=== PATIENT | female | born 1970 | race Caucasian/White ===

== ENCOUNTER 2016-12-11 07:11 | Day surgery (SDC) | payer OTHER ==
[2016-12-11] VITALS (16 sets, daily range): BP systolic 92–149; BP diastolic 44–79; PULSE 64–82; RESP 14–20; Ht 157.5 cm; Wt 65.7 kg
[~2016-12-11] VITALS: Ht 157.5 cm; Wt 65.7 kg
[~2016-12-11 07:11] MED LIST: CEFAZOLIN 1 GM INJ ONE; CEFAZOLIN 2 GM/50 ML (PMX) 50 ML IVPB SCH; SEVOFLURANE 15 MIN ONE; SOD CHLORIDE 0.9% 1,000 ML IV SCH
[2016-12-11] MEDS ORDERED: PROPOFOL 60 ML ONE (09:28)
[2016-12-11] MEDS ORDERED: LIDOCAINE 2% (SDV) 5 ML INJ ONE (09:29)
[2016-12-11] MEDS ORDERED: MIDAZOLAM 1 MG/ML 2 ML INJ ONE (09:30)
[2016-12-11] MEDS ORDERED: FENTAnyl 50 MCG/ML VIAL ONE (09:30)
[2016-12-11] MEDS ORDERED: ONDANSETRON 4 MG INJ IV PRN (10:00)
[2016-12-11] MEDS ORDERED: hydrALAzine 20 MG INJ IV PRN (10:00)
[2016-12-11] MEDS ORDERED: HYDROmorphONE (0.2 MG/ML) 10ML SYG IV PRN ×3 (10:00)
[2016-12-11] MEDS ORDERED: EPHEDrine SULFATE 50 MG/5 ML SYG IV PRN (10:00)
[2016-12-11] MEDS ORDERED: MEPERIDINE 25 MG INJ IV PRN (10:00)
[2016-12-11] MEDS ORDERED: FENTAnyl 50 MCG/ML VIAL IV PRN ×3 (10:00)
[2016-12-11] MEDS ORDERED: LABETALOL HCL 20MG INJ IV PRN (10:00)
[2016-12-11] MEDS ORDERED: DIPHENHYDRAMINE 50 MG INJ IV PRN (10:00)
[2016-12-11] MEDS ORDERED: DEXAMETHASONE 4 MG/ML 1 ML INJ ONE (10:14)
[2016-12-11] MEDS ORDERED: ONDANSETRON 4 MG INJ ONE (10:15)
[2016-12-11] MEDS ORDERED: BUPIVACAINE 0.25% (MPF) 30 ML INJ ONE (10:31)
--- NOTE | 2016-12-11 10:47 | OPR ---
DATE OF OPERATION: 12/11/2016 PREOPERATIVE DIAGNOSIS: Right breast mass. POSTOPERATIVE DIAGNOSIS: Right breast mass. OPERATION PERFORMED: Excision of right breast mass. SURGEON: Kash Hernández MD METAL POLISHER:. Dr. Langston ANESTHESIA: General. ANESTHESIOLOGIST: Jesus. INDICATIONS FOR PROCEDURE: The patient is a 46-year-old female who presented with a painful mass at approximately the 7 to 8 o'clock location of her right breast adjacent to the nipple-areolar border . Workup revealed a cystic mass, most radiographically consistent with a benign cyst; however, due to the fact it was symptomatic, the patient was requesting excision. She consented and was schedule d for surgery. DESCRIPTION OF PROCEDURE: The patient was brought to the operating theater, placed under general an esthesia. The right breast was prepped and draped in the usual sterile fashion. Approximately 3 to 4 cm incision was made directly over the mass. Subcutaneous tissue was dissected with cautery. De ep within the breast parenchyma, the mass was identified. It did appear to be cystic. It was metic ulously dissected from the surrounding tissue, removed and sent for pathologic analysis. Wound was irrigated. Minimal bleeding was controlled with cautery. The skin was then reapproximated with 4-0 Vicryl suture in subcuticular fashion, and benzoin and Steri-Strips were applied. Patient tolerate d the procedure well. The estimated blood loss was 10 mL. There were no complications and the mary jane ent was transported in stable condition to the recovery room where circumferential compression dress ing was applied. Dictated By: KASH HERNÁNDEZ MD TL/NTS Conf#: [id number] DID#: [id number] CC: TRAMAINE LANGSTON MD;*EndCC*
[2016-12-11] MEDS ORDERED: HYDROCODONE/APAP (7.5/325) TAB PO PRN (11:00)
--- NOTE | 2016-12-11 11:55 | OPPN ---
Date/Time of Note Date/Time of Note DATE: 12/11/16 TIME: 11:54 Post-Anesthesia Notes Post-Anesthesia Note Last documented vital signs Vital Signs Date Time Temp Pulse Resp B/P Pulse Ox O2 Delivery O2 Flow Rate FiO2 12/11/16 11:11 70 14 114/58 97 Room Air 12/11/16 10:56 97.9 Activity: WNL Respiratory function: WNL Cardiovascular function: WNL Mental status: Baseline Pain reasonably controlled: Yes Hydration appropriate: Yes Nausea/Vomiting absent: Yes MARIA ELENA DAY December 11, 2016 11:55
== END 2016-12-11 12:20 | disposition home or self-care (01) ==
LOC: SDS 07:11
PROVIDERS: ATTEND Surgery Surgical Oncology
DX: N60.11 Diffuse cystic mastopathy of right breast (principal)
CPT/HCPCS: 19120; 84703; 88307; J0690; J1100; J2250; J2405; J3010; Z7512; Z7610